=== PATIENT | female | born 1970 | race Caucasian/White ===

== ENCOUNTER 2018-08-09 09:08 | Emergency (ER) | payer OTHER ==
[2018-08-09 10:26] LABS: AMORPHOUS SEDIMENT RFX SMALL (NEGATIVE); KETONE, URINE AUTO RFX TRACE mg/dL (NEGATIVE); LEUKOCYTE ESTERASE UR AUTO RFX 2+ (NEGATIVE); MUCUS, URINE RFX MODERATE (NEGATIVE); NITRITE, URINE AUTO RFX NEGATIVE (NEGATIVE); RBC, URINE AUTO RFX TNTC /HPF (0-3); SPECIFIC GRAVITY UR AUTO RFX 1.021 (1.002-1.035); SQUAM EPITHELIAL CELL UR AURFX 2 /HPF (0-6); WBC, URINE AUTO RFX 11 /HPF (0-3)
[2018-08-09 10:51] LABS: HEMATOCRIT 44.8 % (36.0-47.0); HEMOGLOBIN 15.3 g/dl (12.0-15.5); MEAN CORPUSCULAR HEMOGLOBIN 29.3 pg (27.0-33.0); MEAN CORPUSCULAR HGB CONC 34.2 g/dl (32.0-36.5); MEAN CORPUSCULAR VOLUME 85.7 fl (80.0-96.0); PLATELET COUNT, AUTOMATED 260 10^3/uL (150-450); RED BLOOD COUNT 5.23 10^6/uL (4.00-5.40); RED CELL DISTRIBUTION WIDTH 12.9 % (11.5-14.5); WHITE BLOOD COUNT 9.8 10^3/uL (4.0-10.0)
[2018-08-09 11:04] LABS: ANION GAP 5 MEQ/L (8-16); BLOOD UREA NITROGEN 14 MG/DL (7-18); CALCIUM LEVEL 9.6 MG/DL (8.5-10.1); CARBON DIOXIDE LEVEL 30 MEQ/L (21-32); CHLORIDE LEVEL 104 MEQ/L (98-107); GLOMERULAR FILTRATION RATE > 60.0 (>58); GLUCOSE, FASTING 98 MG/DL (70-100); POTASSIUM SERUM 4.2 MEQ/L (3.5-5.1); SODIUM LEVEL 139 MEQ/L (136-145)
[2018-08-09] MEDS: ONDANSETRON 4 MG ORAL DISINTEGRATING TAB (Q0162 PER 1MG) PO (11:23)
[2018-08-09] MEDS: KETOROLAC 60 MG/2 ML VIAL (J1885) IM (11:25)
== END 2018-08-09 12:11 | disposition home or self-care (01) ==
LOC: M ED 09:08
DX: N20.1 Calculus of ureter (principal); K21.9 Gastro-esophageal reflux disease without esophagitis; Z79.899 Other long term (current) drug therapy; F17.210 Nicotine dependence, cigarettes, uncomplicated
CPT/HCPCS: Q0162

== ENCOUNTER 2018-08-28 09:19 | Day surgery (SDC) | payer OTHER ==
[~2018-08-28] VITALS: Ht 162.6 cm; Wt 62.6 kg
[~2018-08-28 09:19] MED LIST: BACT800T5 PO; FLOM0.4C39 PO; KETO10TAB PO; NORCOTAB PO; PANT20TA2 PO; ZOFR4TAB14 PO
[2018-08-28] MEDS ORDERED: LR 1,000 ML IV SCH ×2 (09:30→13:30)
[2018-08-28] MEDS ORDERED: LIDOCAINE 2% INJ 100 MG/5 ML SDV (FOR ANES.) As Ordered ONE (10:37)
[2018-08-28] MEDS ORDERED: PROPOFOL 200 MG/20 ML VIAL As Ordered ONE ×2 (10:37→12:35)
[2018-08-28] MEDS ORDERED: dexameTHASONE 4 MG/ML 1ML VIAL (J1100) As Ordered ONE (10:37)
[2018-08-28] MEDS ORDERED: ONDANSETRON 4MG/2ML VIAL (J2405) As Ordered ONE (10:37)
[2018-08-28] MEDS ORDERED: MIDAZOLAM INJ 2 MG/2 ML VIAL (J2250) As Ordered ONE (10:38)
[2018-08-28] MEDS ORDERED: fentaNYL 100 MCG/2 ML INJECTION (J3010) As Ordered ONE ×2 (10:38→12:32)
[2018-08-28 10:52] LABS: HCG, SERUM QUALITATIVE NEGATIVE (NEGATIVE)
[2018-08-28] MEDS ORDERED: CONRAY-60 60% 50ML VIAL (Q9961) As Ordered ONE (11:22)
[2018-08-28] MEDS ORDERED: ETOMIDATE INJ 20MG/10ML VIAL As Ordered ONE (12:32)
[2018-08-28] MEDS ORDERED: ePHEDrine SULFATE 25 MG/5 ML(5MG/ML) SYRINGE As Ordered ONE (12:36)
[2018-08-28] MEDS ORDERED: LIDOCAINE 2% 5ML JELLY UROJET As Ordered ONE (12:41)
--- NOTE | 2018-08-28 13:12 | REP ---
Retrograde pyelogram: 12 views. History: Nephrolithiasis. 1 minute 58 seconds of fluoroscopy time is reported. Findings: A sequence of 12 last image hold fluoroscopically obtained intraprocedural spot radiographs of the abdomen document cannulation, contrast injection, balloon dilation, and ureteral stent placement. No laterality markers are visible. Electronically Signed by Benson Jansen MD 08/28/2018 06:50 P
--- NOTE | 2018-08-28 13:21 | ROOPDOC ---
[facility] Report Of Operation Report of Operation DATE OF PROCEDURE: 08/28/18 PREPROCEDURE DIAGNOSES: left distal ureteral stone. POSTPROCEDURE DIAGNOSES: partial obstructing stone. PROCEDURE: cystoscopy retrograde pyelogram left ureteral balloon dilation with (15f x 4cm) balloon and stone manipulation/removal; left stent placement; string affixed to left inner thigh. SURGEON: Sam Mccray MD [facility] ANESTHESIA: GET. ESTIMATED BLOOD LOSS: Approximately <5 mL. COMPLICATIONS: none. REMARKS/Findings: stone on retrograde poorly visible; stone appear size as on CT with direct visualization. DESCRIPTION OF PROCEDURE: After informed consent and antibiotics (Ancef 2g) pt was taken to the or suite where routine time out was completed in the OR; all stakeholders for her care were present and agreed; Pt was placed in lithotomy for cystoscopy with 21f rigid cystoscope. A hybrid 0.035 motion wire was placed up the ureter within a 5f ureteral catheter after placing some concentrated contrast (Conray) up the ureter, showing a sliver of a stone in the distal ureter upon this retrograde. In exchange for the ureteral catheter a 15f 4cm balloon was placed up the wire to dilate the distal ureter for 5min. Then the ureteroscope (6.5 -8.5 f was used to to advance to distal ureter to remove the directly visualized stone. The 0 tip bard nitinol basket was used to remove the stone under direct visualization. Then 6x 22-30cm stent was placed over the wire up the ureter under both direct and fluoroscopic visualization. The wire was removed followed by removal of the follower, then the stent string was affixed to left inner thigh, the same side as the procedure. The patient tolerated the procedure well and taken to the recovery in excellent condition. Dr. Mccray spoke with RN and significant other (by phone) regarding findings and plan of care. Discharge to home when meets criteria to f/u in [facility] urology for stent removal of externalized stent. KUB at PACU and prior visit in 2 weeks. Sam Mccray MD [facility]. Sam Mccray MD Aug 28, 2018 13:21
[2018-08-28] MEDS ORDERED: ONDANSETRON 4MG/2ML VIAL (J2405) IV PRN (13:30)
[2018-08-28] MEDS ORDERED: PERCOCET 5MG/325MG TAB PO PRN (13:30)
[2018-08-28] MEDS ORDERED: fentaNYL 100 MCG/2 ML INJECTION (J3010) IV PRN (13:30)
[2018-08-28] MEDS ORDERED: PHEN-501 PO (13:39)
[2018-08-28 13:50] VITALS: BP 146/84
--- NOTE | 2018-08-29 00:20 | REP ---
Clinical: Left ureteral stone removal. Comparison: CT dated 08 09 18. Findings: A left ureteral stent is identified in satisfactory position. Evaluation for urinary tract calcification is limited due to bowel gas pattern and underpenetration. No obvious urinary tract calcifications are identified. The bowel gas pattern is nonspecific. No organomegaly. No abnormal calcifications. Skeletal structures are intact. Impression: Status post left ureteral stone removal with stent placement. Electronically Signed by Kaleb Parker MD 08/29/2018 12:11 A
== END 2018-08-28 14:26 | disposition home or self-care (01) ==
LOC: M SDC 09:19
PROVIDERS: ATTEND Urology Pediatric Urology
DX: N20.1 Calculus of ureter (principal); Z79.899 Other long term (current) drug therapy; K21.9 Gastro-esophageal reflux disease without esophagitis; F17.210 Nicotine dependence, cigarettes, uncomplicated
CPT/HCPCS: 52332; 52341; 74018; 74420; 82360; 84703; 88300; C1769; C2617; J0690; J1100; J2250; J2405; J3010; Q9961

== ENCOUNTER → 2019-11-06 | Outpatient (CLI) | payer OTHER ==
[~2019-11-06] MED LIST changes: +HYDR-3715 PO; -NORCOTAB PO; +PHEN-501 PO; +PROHANCE 279.3MG/ML 15ML VIAL (A9576) As Ordered ONE
--- NOTE | 2019-11-06 12:42 | REP ---
Bilateral breast MRI study without and with IV gadolinium: History: High risk breast cancer screening. Comparison mammography is from today November 06, 2019. Positive family history breast carcinoma. Technique: Three [place] MRI imaging was performed with a dedicated breast coil. Axial, coronal, and sagittal T1 and T2-weighted scans were obtained with and without fat saturation in the usual fashion. The study includes dynamically acquired post gadolinium enhanced imaging subtraction imaging. Maximal intensity projection and multiplanar re-formation imaging is included as well. The study was interpreted with the aid of PicateersD, an FDA approved computer-aided detection (CAD) software program, on a dedicated breast MRI work station. The gadolinium enhancement dose is 12.2 ml of intravenous ProHance. Findings: There are are moderate fibroglandular elements bilaterally in a pattern which is roughly symmetric corresponding with the mammographic density pattern. There is mild to moderate background parenchymal enhancement. There is no evidence of axillary lymphadenopathy. No significant breast cystic change is seen. High-resolution pre and postcontrast images show no suspicious morphologic abnormality in either breast. There is no suspicious area of enhancement and/or washout in either breast to suggest malignancy. Impression: BIRADS category one negative findings. Patient's whose estimated lifetime breast cancer risk assessment is greater than 20% merit annual screening with bilateral breast MRI scanning in addition to mammography. These can be alternated at 6 month intervals. Electronically Signed by Benson Jansen MD 11/06/2019 12:34 P
== END ==
LOC: M RAD 09:51
PROVIDERS: ATTEND Family Medicine
DX: Z12.31 Encounter for screening mammogram for malignant neoplasm of breast (principal); Z80.3 Family history of malignant neoplasm of breast
CPT/HCPCS: A9576; C8908

== ENCOUNTER → 2019-11-06 | Outpatient (CLI) | payer OTHER ==
[~2019-11-06] MED LIST changes: -PROHANCE 279.3MG/ML 15ML VIAL (A9576) As Ordered ONE
--- NOTE | 2019-11-10 09:38 | REPMRS ---
Patient History The patient states she has not had a clinical breast exam in over a year. Patient is postmenopausal. Family history of breast cancer in mother, endometrial cancer in sister, breast cancer in sister, breast cancer in maternal grandmother, brain cancer in maternal aunt, brain cancer in maternal uncle. 3D TOMOSYNTHESIS WAS PERFORMED. The [facility] lifetime risk for breast cancer is 17.9%. Digital Woman Screen Mammo: November 06, 2019 - Exam #: [id number] Bilateral CC and MLO view(s) were taken. Technologist: Shantal Herman Technologist FINDINGS: The breast tissue is heterogeneously dense. This may lower the sensitivity of mammography. There has been no change in the appearance of the mammogram from the prior studies. There is a moderate amount of residual fibroglandular tissue which is fairly symmetric. There is no interval development of dominant mass, areas of architectural distortion, or clustered microcalcification typical of malignancy. Assessment: BI-RADS/ACR category 1 mammogram. Negative Mammogram. Recommendation Routine screening mammogram in 1 year (for women over age 40). This mammogram was interpreted with the aid of an FDA-approved computer-aided dectection system. Electronically Signed By: Jasen Jansen MD 11/10/19 0938
== END ==
LOC: M WHC 08:59
PROVIDERS: ATTEND Family Medicine
DX: Z12.31 Encounter for screening mammogram for malignant neoplasm of breast (principal)